=== PATIENT | male | born 1945 | race Caucasian/White ===

== ENCOUNTER → 2021-03-01 | Outpatient (CLI) | payer MEDICARE | END | disposition home or self-care (01) | LOC: LABPAT 15:50 | PROVIDERS: ATTEND Orthopaedic Surgery | DX: Z01.812 Encounter for preprocedural laboratory examination (principal) | CPT/HCPCS: 87070 ==

== ENCOUNTER → 2021-03-15 | Outpatient (CLI) | payer MEDICARE ==
[2021-03-15 19:36] LABS: Potassium 4.1 mmol/L (3.5-5.5)
== END | disposition home or self-care (01) ==
LOC: LABWHC1 14:06
PROVIDERS: ATTEND Family Medicine
DX: E87.1 Hypo-osmolality and hyponatremia (principal)
CPT/HCPCS: 36415; 80051

== ENCOUNTER → 2021-05-07 | Outpatient (CLI) | payer MEDICARE ==
[2021-05-07 11:19] LABS: Appearance,Urine Clear (Clear); Bilirubin,Urine Negative (Negative); Blood,Urine Negative (Negative); Color,Urine Light Yellow; Glucose,Urine (UA) Negative (Negative); Ketones,Urine Negative (Negative); Leukocyte Esterase,Urine Negative (Negative); Nitrite,Urine Negative (Negative); Protein,Urine Negative (Negative); Specific Gravity,Urine 1.017 (1.001-1.035); Urobilinogen,Urine <2.0 mg/dL (<2.0)
[2021-05-07 11:37] LABS: HCT 43.7 % (39.0-53.0); HGB 13.8 gm/dL (13.0-17.5); MCH 29.6 pg (25.0-35.0); MCHC 31.6 g/dL (31.0-37.0); MCV 93.5 fL (80.0-100.0); Mean Platelet Volume 7.6; Platelet Count 205 k/uL (150-450); RBC 4.67 m/uL (4.30-5.90); WBC 4.9 k/uL (3.8-10.6)
[2021-05-07 11:39] LABS: Albumin 3.9 g/dL (3.5-5.0); Calcium 9.4 mg/dL (8.4-10.2); Potassium 4.1 mmol/L (3.5-5.1); Total Bilirubin 0.7 mg/dL (0.2-1.3)
[2021-05-07 11:41] LABS: Partial Thromboplastin Time 22.4 sec (22.0-30.0); Prothrombin Time 10.3 sec (9.0-12.0)
== END | disposition home or self-care (01) ==
LOC: LABPAT 10:15
PROVIDERS: ATTEND Orthopaedic Surgery
DX: Z01.812 Encounter for preprocedural laboratory examination (principal); Z79.01 Long term (current) use of anticoagulants
CPT/HCPCS: 36415; 80053; 81003; 85027; 85610; 85730

== ENCOUNTER 2021-05-14 05:33 | Day surgery (SDC) | payer MEDICARE ==
[2021-05-07 15:45] VITALS: BMI 32.3
[~2021-05-14 05:33] MED LIST: ACETAMINOPHEN TAB 500 MG TAB PO PRN; DEXAMETHASONE SOD PHOSPHATE 4 MG/ML 1 ML VIAL IV ONE; GABAPENTIN 300 MG CAP PO PRN; LACTATED RINGERS 1,000 ML IV SCH; MELOXICAM 7.5 MG TAB PO PRN; ONDANSETRON 4 MG/2 ML VIAL IVP ONE; ROPIVACAINE/EPI/CLONIDINE/KET 50 ML SYRINGE MISCELLANE PRN; TRANEXAMIC ACID 1,000 MG in SODIUM CHLORIDE 0.9% 100 ML IVPB PRN
[2021-05-14 06:24] LABS: Glucose,Whole Blood 150 mg/dL (75-99)
[2021-05-14] MEDS ORDERED: LIDOCAINE 1% INJ 10MG/ML (20 ML MDV) ONE ×2 (06:36→07:05)
[2021-05-14] MEDS ORDERED: fentaNYL (PF) 50 MCG/ML 2 ML AMP IVP ONE (06:46)
[2021-05-14] MEDS ORDERED: MIDAZOLAM 2 MG/2 ML VIAL IVP ONE (06:46)
[2021-05-14] MEDS ORDERED: HYDROmorphone 0.5 MG/0.5 ML SYRINGE IVP PRN ×3 (07:00→07:07)
[2021-05-14] MEDS ORDERED: PROPOFOL 10 MG/ML 20 ML VIAL IV ONE (07:05)
[2021-05-14] MEDS ORDERED: SODIUM CHLORIDE 0.9% (PF) 10 ML VIAL ONE (07:05)
[2021-05-14] MEDS ORDERED: TRANEXAMIC ACID 1,000 MG/10 ML VIAL ONE (07:05)
[2021-05-14] MEDS ORDERED: ROCURONIUM 10 MG/ML (5 ML VIAL) IV ONE (07:05)
[2021-05-14] MEDS ORDERED: NEOSTIGMINE 1 MG/ML 10 ML VIAL ONE (07:05)
[2021-05-14] MEDS ORDERED: ROPIVACAINE 5 MG/ML 30 ML VIAL ONE (07:05)
[2021-05-14] MEDS ORDERED: SUCCINYLCHOLINE CHLORIDE 100 MG/5 ML SYR IV ONE (07:05)
[2021-05-14] MEDS ORDERED: fentaNYL (PF) 50 MCG/ML 2 ML AMP ONE (07:05)
[2021-05-14] MEDS ORDERED: SODIUM CHLORIDE 0.9% 100 ML BAG ONE (07:05)
[2021-05-14] MEDS ORDERED: GLYCOPYRROLATE 0.2 MG/ML 2 ML VIAL ONE (07:05)
[2021-05-14] MEDS ORDERED: NALOXONE 0.4 MG/ML 1 ML VIAL IV PRN (07:07)
[2021-05-14] MEDS ORDERED: ONDANSETRON 4 MG/2 ML VIAL IVP PRN (07:07)
[2021-05-14] MEDS ORDERED: HYDROmorphone 0.2 MG/1 ML SYRINGE IVP PRN (07:07)
[2021-05-14] MEDS ORDERED: HYDROcodone/APAP 7.5-325MG 1 EACH TAB PO PRN ×2 (07:09)
[2021-05-14] MEDS ORDERED: SODIUM CHLORIDE 0.9% 1,000 ML IV SCH (07:15)
--- NOTE | 2021-05-14 08:28 | P.OP ---
Date of Procedure: 05/14/21 Preoperative Diagnosis: Severe Osteoarthritis right knee Postoperative Diagnosis: Severe osteoarthritis right knee Procedure(s) Performed: Right total knee arthroplasty Implants: Sawyer [employer] Nephew Journey II CR Oxinium cruciate retaining femoral component size 6, right Sawyer [employer] Nephew Journey nonporous tibial baseplate size 6, right [employer] Journey II, XLPE Deep Dished articular insert, size 13 mm, Size 5-6, right [employer]hew Journey Sirena II resurfacing patellar component, oval, 35 mm All components were cemented using Palacos R bone cement The articulation is Oxinium on polyethylene Anesthesia: GUME Surgeon: Je Buchanan Ritual Circumciser #1: Gypsy Chopra Estimated Blood Loss (ml): 50 Pathology: other (Bone and cartilage) Condition: stable Disposition: PACU Indications for Procedure: After failure of conservative treatment we discussed the surgical and nonsurgical treatment options at length. Patient wishes to proceed with a total knee arthroplasty. Complications specific to this procedure were discussed at length, including but not limited to infection, bleeding, stiffness, and nerve injury. Covid-19 was also discussed at length with the patient, and they are aware of the current policies and procedures. The patient was given the option of delaying surgery, but they elect to proceed knowing these risks. Patient is aware of all these complications and informed consent was obtained Operative Findings: The operative findings are consistent with severe osteoarthritis of the right knee Description of Procedure: Patient was seen in the preoperative area and the consent was reviewed and the operative site was marked with a skin marker. The patient verified the procedure and the operative site. An adductor canal pain catheter and an iPACK block was placed by anesthesia in the preoperative area. The patient was then brought to the operating room and given preoperative antibiotics intravenously. A gram of transexamic acid was given intravenously. A general anesthetic was administered by the anesthesia department. A tourniquet was placed on the upper thigh and the lower extremity was prepped with chlorhexidine and draped in usual sterile fashion. A universal timeout was then performed which confirmed the patient's name, surgical site, ALLERGIES, and consent. The lower extremity was then exsanguinated and tourniquet was inflated to 250 mmHg. A standard anterior midline approach to the knee was performed. The skin and subcutaneous tissue were sharply dissected down to the patellar tendon. A medial parapatellar arthrotomy was then performed. The knee was then extended, the patellar was everted, and the knee was again flexed. The infra-patellar fat pad was removed in order to enhance exposure. The anterior horns of both menisci were excised, and a release was performed to the posterior medial aspect of the knee. On gross visual inspection, there was complete loss of articular cartilage in the medial and patellofemoral joint spaces. There was also significant cartilage damage in the lateral compartment. There were multiple periarticular osteophytes globally about the knee which were then removed with a Ronguer. The femoral canal was then opened with the 9.5 mm intramedullary drill. The 8 mm intramedullary sandra was then inserted into the femoral canal with the distal femoral cutting guide set for 5 of valgus. The distal femoral cutting block was then pinned in place. The intramedullary sandra was then removed, and the distal femur was then cut. The cutting block was then removed and the cut was checked for symmetry. The resected bone was then measured to confirm the appropriate distal femoral resection. Next, the sizing guide was then placed and set for 3 external rotation based off of the epicondylar axis and Whitesides line. Pins were then placed and the drill holes, and the femur was sized with the sizing stylus. The pins were then removed, and the sizing guide was then removed. The spikes of the femoral block was then placed into the predrilled holes, and malleted into place. Two 45 mm pins were then placed into the fixation holes on the cutting block. An madeleine wing was then used to ensure there would be no notching with the anterior cut. The anterior condyles were cut without notching. The anterior chord cut was then performed, followed by the posterior cut, posterior chamfer cut, and the anterior chamfer cut. The collateral ligaments were protected during the entire process. The cutting block was then removed. Any remaining bone and osteophytes were removed from the femur with a Rominger. The femoral canal was plugged with autologous bone. Attention was then directed to the tibia. The remaining ACL was removed with a Ronguer, and the tibia was then gently subluxed forward with a large bent knee retractor. Any remaining menisci were excised. The posterior lateral corner was cauterized in order to coagulate the lateral geniculate artery. The extra medullary tibial cutting guide was then placed, set for the appropriate rotation, slope, and depth of resection. The proximal tibia cutting guide was then pinned in place. Proximal tibia was then cut and sized. The femoral trial was placed. A narrow saw blade was then used to remove the anterior intracondylar femoral bone. The CR notch trial was then placed. The tibial trial was placed with the appropriate-sized insert. The knee was able to fully extend and flex to 130 and was stable throughout all range of motion. The knee was then extended and the patella was everted. Patella was then measured, and then using an osteotomy guide, the patella was cut at the appropriate level. The patella was then measured and drilled and the patella trial was then placed. The knee was then taken through range of motion with the patella trial and the patella tracked normally using the no thumbs technique.. The knee was then extended patella trial was then removed and the patella was everted. Knee was then flexed and lug holes were drilled through the femoral trial and the femoral trial was then removed. The tibial was then re-exposed, and the tibial broach guide was then pinned in place after it was set for the appropriate rotation to allow for the most coverage without overhang. The tibia was then reamed and broached. The cut surfaces of bone were then irrigated with pulsatile lavage. The knee was also irrigated with Irrisept solution. The components were then opened, the cement was mixed, and the components were then cemented in place. The cement was allowed to harden with the knee in full extension. After the cemented hardened. The tourniquet was released, and hemostasis was obtained. A second gram of transexamic acid was given intravenously. The knee was again irrigated. The knee was again taken through range of motion and found to be stable throughout all range of motion of 0-130, and the patella tracked normally. The fascia was then closed with 0 Vicryl followed by #2 strata fix suture. The subcutaneous tissue was closed with 3-0 Vicryl and 3-0 strata fix. Exofin glue was used for the skin and placed with the knee in flexion. After the glue had dried, and Optafoam silver impregnated dressing was applied. The patient was then transferred to recovery room in stable condition. The ophthalmic surgical assistant DAILY Kang was required due the complexity surgery and the need for a skilled executive chef assistant. She assisted in positioning, draping, retraction, and closure of the wound.
[2021-05-14] MEDS ORDERED: LACTATED RINGERS 1,000 ML IV ONE (08:37)
[2021-05-14] MEDS ORDERED: ROPIVACAINE 0.2%-NS ON-Q PUMP 2 MG/ML EACH MISCELLANE ONE (09:00)
[2021-05-14 09:06] VITALS: TEMP 97.2
[2021-05-14 09:08] VITALS: RESP 16
--- NOTE | 2021-05-14 09:53 | XR ---
Limited right knee HISTORY: Status post right knee arthroplasty 2 views the right knee Patient is status post right knee arthroplasty. There is anatomic alignment. Lucency is present withi n the soft tissues. IMPRESSION: Orthopedic follow-up
[2021-05-14] MEDS ORDERED: hydrALAZINE HCL 20 MG/ML 1 ML VIAL ONE (11:45)
[2021-05-14] MEDS ORDERED: hydrALAZINE HCL 20 MG/ML 1 ML VIAL IVP ONE (11:50)
[2021-05-14 11:52] VITALS: PULSE 98
[2021-05-14 12:14] VITALS: BP 152/60
--- NOTE | 2021-05-14 13:59 | P.ANPRN ---
Procedure Note - Anesthesia - Nerve Block Performed Right Adductor Canal Time Out Performed: Yes (06:45) Date of Procedure: 05/14/21 Procedure Start Time: :45 Procedure Stop Time: 06:56 Location of Patient: PreOp Indication: Acute Post-Operative Pain, Requested by Surgeon (Dr Je medina) Sedation Type: Sedate with meaningful contact maintained Preparation: Sterile Prep, Sterile Dressing Position: Supine Catheter: Indwelling Needle Types: Pajunk Needle Gauge: 21 Ultrasound used to visualize needle placement: Yes Ultrasound used to observe medication spread: Yes Injectate: 0.5% Ropivacaine (see comment for volume) (15cc) Blood Aspirated: No Pain Paresthesia on Injection Noted: No Resistance on Injection: Normal Image Stored and Saved: Yes Events: Uneventful and Well Tolerated
--- NOTE | 2021-05-14 14:01 | P.ANPRN ---
Procedure Note - Anesthesia - Nerve Block Performed Right iPack Time Out Performed: Yes Date of Procedure: 05/14/21 Procedure Start Time: 06:57 Procedure Stop Time: 07:02 Location of Patient: PreOp Indication: Acute Post-Operative Pain, Requested by Surgeon (Dr Je Buchanan) Sedation Type: Sedate with meaningful contact maintained Preparation: Sterile Prep Position: Supine Catheter: None Needle Types: Pajunk Needle Gauge: 21 Ultrasound used to visualize needle placement: Yes Ultrasound used to observe medication spread: Yes Injectate: 0.5% Ropivacaine (see comment for volume) (15cc + 5cc PF Normal saline) Blood Aspirated: No Pain Paresthesia on Injection Noted: No Resistance on Injection: Normal Image Stored and Saved: Yes Events: Uneventful and Well Tolerated
== END 2021-05-14 12:40 | disposition home health service (06) ==
LOC: OR 05:33
PROVIDERS: ATTEND Orthopaedic Surgery
DX: M17.11 Unilateral primary osteoarthritis, right knee (principal); Z20.822 Contact with and (suspected) exposure to COVID-19
CPT/HCPCS: 27447; 97110; 97161; 64999; 64448; 76942; 88300; 87635; 73560; C1713; C1776; J2250; J0360; J1100; J2710; J0690; J2405; J2001; J3010; J2795 ×2; J0330; J2704

== ENCOUNTER 2021-05-15 01:29 | Emergency (ER) | payer MEDICARE ==
--- NOTE | 2021-05-15 02:47 | XR ---
EXAMINATION TYPE: XR chest 2V DATE OF EXAM: 05/15/2021 COMPARISON: NONE HISTORY: Fever TECHNIQUE: 2 views FINDINGS: Heart and mediastinum are normal. Lungs are clear. Diaphragm is normal. Bony thorax is inta ct IMPRESSION: Normal chest.
[2021-05-15 03:29] LABS: Appearance,Urine Clear (Clear); Bilirubin,Urine Negative (Negative); Blood,Urine Negative (Negative); Color,Urine Yellow; Glucose,Urine (UA) 1+ (Negative); Ketones,Urine Negative (Negative); Leukocyte Esterase,Urine Negative (Negative); Nitrite,Urine Negative (Negative); Protein,Urine Negative (Negative); Specific Gravity,Urine 1.025 (1.001-1.035); Urobilinogen,Urine <2.0 mg/dL (<2.0)
--- NOTE | 2021-05-15 04:12 | ED ---
Fever HPI - General Chief Complaint: Fever Stated Complaint: High heart rate, fever Time Seen by Provider: 05/15/21 02:04 Source: patient Mode of arrival: wheelchair Limitations: no limitations - History of Present Illness Initial Comments: Patient 75-year-old man who woke with tachycardia and fever tonight. Took the his temperature at home and it was over 102. Complaint: fever -: minutes(s) Temperature Source: oral Context: recent procedure Associated Symptoms: nasal congestion Treatments Prior to Arrival: none - Related Data Home Medications Medication Instructions Recorded Confirmed Levothyroxine Sodium [Synthroid] 75 mcg PO QAM 04/11/17 05/14/21 Lisinopril-Hctz 10-12.5 mg 1 tab PO QAM 04/11/17 05/14/21 [Zestoretic 10-12.5] Simvastatin [Zocor] 20 mg PO Q2D 04/11/17 05/14/21 Terazosin [Hytrin] 5 mg PO Q2D 04/11/17 05/14/21 Ergocalciferol [Vitamin D2 (1250 1,250 mcg PO WEEKLY 03/16/21 05/14/21 Mcg = 29949 Iu)] Ipratropium [place] 0.06%Nasal 2 spray EA NOSTRIL BID PRN 03/16/21 05/14/21 [Atrovent Nasal 0.06%] Pioglitazone [Actos] 45 mg PO DAILY 03/16/21 05/14/21 Tadalafil [Cialis] 5 mg PO DAILY 03/16/21 05/14/21 Previous Rx's Medication Instructions Recorded Aspirin 325 mg PO BID #60 tab 05/14/21 HYDROcodone/APAP 7.5-325MG [Jones 1 - 2 tab PO Q6H PRN #32 tab 05/14/21 7.5-325] Ondansetron Odt [Zofran Odt] 1 tab PO Q8HR PRN #10 tab 05/14/21 Sennosides [Senokot] 2 tab PO DAILY PRN #60 tablet 05/14/21 Allergies Allergy/AdvReac Type Severity Reaction Status Date / Time No Known Allergies Allergy Verified 05/15/21 01:50 Review of Systems ROS Statement: Those systems with pertinent positive or pertinent negative responses have been documented in the HPI. ROS Other: All systems not noted in ROS Statement are negative. Constitutional: Reports: fever. Denies: chills, weakness ENT: Reports: congestion Respiratory: Denies: cough, dyspnea Cardiovascular: Reports: palpitations. Denies: chest pain, orthopnea, edema, syncope Gastrointestinal: Denies: abdominal pain, vomiting, diarrhea Genitourinary: Denies: dysuria, hematuria Musculoskeletal: Reports: as per HPI, arthralgia. Denies: back pain Skin: Denies: rash Neurological: Denies: headache, weakness Past Medical History Past Medical History: Diabetes Mellitus, Hyperlipidemia, Hypertension, Thyroid Disorder History of Any Multi-Drug Resistant Organisms: None Reported Past Surgical History: Joint Replacement Additional Past Surgical History / Comment(s): COLONOSCOPY, right knee Past Anesthesia/Blood Transfusion Reactions: No Reported Reaction Past Psychological History: No Psychological Hx Reported Smoking Status: Never smoker Past Alcohol Use History: Rare Past Drug Use History: None Reported - Past Family History Mother Family Medical History: No Reported History Brother(s) Family Medical History: Cancer General Exam Limitations: no limitations General appearance: alert, in no apparent distress Head exam: Present: atraumatic, normocephalic Eye exam: Present: normal appearance. Absent: scleral icterus, conjunctival injection ENT exam: Present: normal oropharynx Neck exam: Present: normal inspection Respiratory exam: Present: normal lung sounds bilaterally. Absent: respiratory distress, wheezes, rales, rhonchi, stridor Cardiovascular Exam: Present: regular rate, normal rhythm, normal heart sounds. Absent: systolic murmur, diastolic murmur, rubs, gallop GI/Abdominal exam: Present: soft. Absent: distended, tenderness, guarding, rebound, rigid, mass Extremities exam: Present: normal inspection, normal capillary refill, other (Surgical dressing is intact and clean). Absent: pedal edema, calf tenderness Back exam: Present: normal inspection. Absent: CVA tenderness (R), CVA tenderness (L) Neurological exam: Present: alert. Absent: motor sensory deficit Skin exam: Present: warm, dry, intact, normal color. Absent: rash Course Vital Signs 05/15/21 05/15/21 01:41 04:13 Temperature 98.9 F 99.2 F Pulse Rate 107 H 90 Respiratory 20 18 Rate Blood Pressure 133/64 126/78 O2 Sat by Pulse 96 99 Oximetry Medical Decision Making - Medical Decision Making Patient is 75-year-old man who had fever to over 102 at home tonight as well as some tachycardia. Patient denies other symptoms of infection except for a little bit of congestion and he states that he has chronic sinus type symptoms. - Lab Data Lab Results 05/15/21 05/15/21 05/15/21 Range/Units 02:30 02:30 03:20 Urine Color Yellow Urine Appearance Clear (Clear) Urine pH 5.0 (5.0-8.0) Ur Specific [place] 1.025 (1.001-1.035) Urine Protein Negative (Negative) Urine Glucose (UA) 1+ H (Negative) Urine Ketones Negative (Negative) Urine Blood Negative (Negative) Urine Nitrite Negative (Negative) Urine Bilirubin Negative (Negative) Urine Urobilinogen <2.0 (<2.0) mg/dL Ur Leukocyte Esterase Negative (Negative) Coronavirus (PCR) Not Detected (Not Detectd) Influenza Type A RNA Not Detected (Not Detectd) Influenza Type B (PCR) Not Detected (Not Detectd) Disposition Clinical Impression: Fever Disposition: HOME SELF-CARE Condition: Good Instructions (If sedation given, give patient instructions): Fever in Adults (ED) Is patient prescribed a controlled substance at d/c from ED?: No Referrals: Modesta Ruiz DO [Primary Care Provider] - 1-2 days
[2021-05-15 04:16] VITALS: BP 126/78; PULSE 90; RESP 18; TEMP 99.2
== END 2021-05-15 04:30 | disposition home or self-care (01) ==
LOC: EC 01:29
DX: R50.9 Fever, unspecified (principal); Z79.82 Long term (current) use of aspirin; E11.9 Type 2 diabetes mellitus without complications; E78.5 Hyperlipidemia, unspecified; I10 Essential (primary) hypertension; E07.9 Disorder of thyroid, unspecified; Z96.651 Presence of right artificial knee joint; Z20.822 Contact with and (suspected) exposure to COVID-19
CPT/HCPCS: 71046; 81003; 87502; 87635; 99285

== ENCOUNTER → 2023-03-27 | Outpatient (CLI) | payer MEDICARE ==
--- NOTE | 2023-03-27 08:17 | CT ---
EXAMINATION TYPE: CT sinus wo con DATE OF EXAM: 03/27/2023 COMPARISON: None HISTORY: chronic sinusitis, polyp in left nasal cavity f/u CT DLP: [address] of the paranasal sinuses was performed in the axial and coronal planes. Bone and soft tissue settings are submitted. The paranasal sinuses demonstrate normal aeration and development. The paranasal sinuses are free of mucosal thickening or air fluid level. The osteal meatal units are patent bilaterally. Nasal septal deviation from right to left. No bony destructive changes are seen within the field of view. IMPRESSION: Nasal septal deviation from right to left. Otherwise unremarkable study.
== END | disposition home or self-care (01) ==
LOC: RADCTMAIN 07:45
PROVIDERS: ATTEND Otolaryngology
DX: J32.0 Chronic maxillary sinusitis (principal); J34.2 Deviated nasal septum; J33.0 Polyp of nasal cavity
CPT/HCPCS: 70486

== ENCOUNTER → 2023-06-19 | Day surgery (SDC) | payer MEDICARE ==
[~2023-06-19] MED LIST changes: -ACETAMINOPHEN TAB 500 MG TAB PO PRN; -DEXAMETHASONE SOD PHOSPHATE 4 MG/ML 1 ML VIAL IV ONE; -GABAPENTIN 300 MG CAP PO PRN; +GLYCOPYRROLATE 0.2 MG/ML 2 ML VIAL ONE; +HYDROmorphone 0.5 MG/0.5 ML SYRINGE IVP PRN; -LACTATED RINGERS 1,000 ML IV SCH; +LIDOCAINE 1% (10MG/ML) FOR IV START INTRADERMA PRN; +LIDOCAINE 1% INJ 10MG/ML (20 ML MDV) ONE; -MELOXICAM 7.5 MG TAB PO PRN; +MIDAZOLAM 2 MG/2 ML VIAL IV PRN; +MIDAZOLAM 2 MG/2 ML VIAL ONE; +NEOSTIGMINE 1 MG/ML 10 ML VIAL ONE; +PROPOFOL 10 MG/ML 20 ML VIAL IV ONE; +ROCURONIUM 10 MG/ML (5 ML VIAL) IV ONE; -ROPIVACAINE/EPI/CLONIDINE/KET 50 ML SYRINGE MISCELLANE PRN; +SUCCINYLCHOLINE CHLORIDE 200 MG/10 ML VIAL IV ONE; -TRANEXAMIC ACID 1,000 MG in SODIUM CHLORIDE 0.9% 100 ML IVPB PRN; +ePHEDrine 50 MG/ML 1 ML VIAL ONE; +fentaNYL (PF) 50 MCG/ML 2 ML AMP ONE; +metroNIDAZOLE-NS PMX 500 MG in SALINE 1 100ML.BAG IVPB PRN
[2023-06-19] MEDS: OXYMETAZOLINE 0.05% NASL SPRAY 1 SPRAY BOTTLE EA NOSTRIL PRN (12:55)
[2023-06-19] MEDS: LACTATED RINGERS 1,000 ML IV SCH (13:17)
[2023-06-19] MEDS: FAMOTIDINE 20 MG/2 ML VIAL IV PRN (13:27)
[2023-06-19] MEDS: ONDANSETRON 4 MG/2 ML VIAL IVP PRN (13:32)
[2023-06-19] MEDS: DEXAMETHASONE SOD PHOSPHATE 4 MG/ML 1 ML VIAL IV ONE (13:32)
[2023-06-19 13:38] LABS: Glucose,Whole Blood 166 mg/dL (70-110)
[2023-06-19 14:52] LABS: Basophils % (A) 1 %; Eosinophils # (A) 0.1 k/uL (0-0.7); Eosinophils % (A) 1 %; HCT 46.4 % (39.0-53.0); HGB 15.2 gm/dL (13.0-17.5); Lymphocytes # (A) 1.5 k/uL (1.0-4.8); Lymphocytes % (A) 23 %; MCH 29.3 pg (25.0-35.0); MCHC 32.8 g/dL (31.0-37.0); MCV 89.3 fL (80.0-100.0); Mean Platelet Volume 8.7; Monocytes # (A) 0.5 k/uL (0-1.0); Monocytes % (A) 8 %; Neutrophils # (A) 4.3 k/uL (1.3-7.7); Neutrophils % (A) 65 %; Platelet Count 210 k/uL (150-450); RDW 13.5 % (11.5-15.5); WBC 6.5 k/uL (3.8-10.6)
[2023-06-19 15:01] LABS: ALT 29 U/L (4-49); AST 35 U/L (17-59); African American GFR (CKD) >90 (>60 ml/min/1.73 sqM); Albumin 4.4 g/dL (3.5-5.0); Alkaline Phosphatase 43 U/L (38-126); Anion Gap 6 mmol/L; Blood Urea Nitrogen 19 mg/dL (9-20); Calcium 9.6 mg/dL (8.4-10.2); Carbon Dioxide 27 mmol/L (22-30); Chloride 106 mmol/L (98-107); Glucose 170 mg/dL (74-99); Non-African American GFR(CKD) 88 (>60 ml/min/1.73 sqM); Sodium 139 mmol/L (137-145); Total Bilirubin 1.7 mg/dL (0.2-1.3); Total Protein 7.6 g/dL (6.3-8.2)
[2023-06-19] MEDS: EPINEPHrine 1 MG/ML (MDV) 30 ML VIAL TOPICAL ONE (15:02)
[2023-06-19] MEDS: LIDOCAINE 1%-EPI 1:100,000 50 ML VIAL SUBMUCOSAL ONE ×2 (15:03)
[2023-06-19 15:04] LABS: Potassium 4.4 mmol/L (3.5-5.1)
[2023-06-19] MEDS: BUPIVACAINE (PF) 0.25% 30 ML VIAL SQ ONE ×2 (15:04)
[2023-06-19] MEDS: BACITRACIN 50,000 UNIT VIAL TOPICAL ONE (15:44)
--- NOTE | 2023-06-19 16:31 | P.OP ---
Date of Procedure: 06/19/23 Preoperative Diagnosis: Deviated nasal septum Bilateral inferior turbinate hypertrophy Large left posterior nasal choanal polyp Postoperative Diagnosis: Same Procedure(s) Performed: Septoplasty submucosal resection of the inferior nasal turbinates with outfracturing and compression, bilateral Functional endoscopic sinus surgery with removal of large left posterior nasal choane polyp Anesthesia: GUME Surgeon: Agustin Fleming Estimated Blood Loss (ml): 5 Pathology: other (Sinonasal) Condition: stable Disposition: PACU Indications for Procedure: Patient has nasal obstruction which has been long-standing and has failed appropriate medical therapy including nasal steroids and irrigations. Examination reveals a large left nasal polyp along with a severe deviated septum and large obstructive inferior turbinates. All risks, benefits and alternative therapies were discussed in detail consent was obtained and all questions were answered for surgical correction Operative Findings: Large left nasal choanal polyp, deviated nasal septum severe left, large obstructive inferior turbinates Description of Procedure: Patient was taken to the operative room and placed in the supine position. A general inhalation anesthetic was administered to the patient by mask and subsequently intubated with a cuffed endotracheal tube by the department of anesthesia with a functioning IV line in place. The patient was monitored throughout the entire case by the department of anesthesia. The septum, lateral nasal wall inferior middle turbinates were injected with lidocaine 1% and bupivacaine with epinephrine. 10 minutes were allowed wait for full vasoconstrictive effects to take place. At this time a caudal incision was made over the caudal portion of the left septum down to the mucoperichondrium. A mucoperichondrial flap was developed to the extent of visualization on the left and a crossover incision was made with for the mucoperichondrial flap development to the extent of visualization on the contralateral side. With use of crosshatching incisions and removal of redundant strips of septal cartilage the septum was straightened his back in the vomerian groove and sutured fixated in position. Incision was closed with a rapid Vicryl in a quilting stitch was used to reapproximate the septal flaps. Mclean splints were placed at the end of the case for stabilization. We entered the inferior turbinates with a microdebrider with care to avoid any trauma to the turbinate had. A submucosal resection was performed bilaterally with the microdebrider utilizing a 2 mm microdebrider blade. Excellent results were obtained the inferior turbinates were then outfractured and compressed with the [employer] nasal elevator. Attention was then paid to the nose where a 0 Stover sandra scope was placed into the nose bilaterally we identified a very large left posterior nasal polyps which we removed and hemostasis was obtained with use of the xerogel packing. Mclean splints were placed. The patient tolerated this well and follow-up will be in the office next Friday.
[2023-06-19 16:35] VITALS: TEMP 97.8
[2023-06-19 16:41] LABS: Glucose,Whole Blood 180 mg/dL (70-110)
[2023-06-19 17:03] VITALS: RESP 20
[2023-06-19] MEDS: amLODIPine 10 MG TAB PO STA (17:15)
[2023-06-19] MEDS: hydrALAZINE HCL 20 MG/ML 1 ML VIAL IV ONE (17:44)
[2023-06-19] MEDS: METOPROLOL TARTRATE 5 MG/5 ML VIAL IVP ONE (18:33)
[2023-06-19 18:54] VITALS: BP 166/72; PULSE 102
== END | disposition home or self-care (01) ==
LOC: OR 12:32
PROVIDERS: ATTEND Otolaryngology
DX: J34.3 Hypertrophy of nasal turbinates (principal); J34.2 Deviated nasal septum; J33.0 Polyp of nasal cavity
CPT/HCPCS: 30520; 30140; 88305; 80053; 85025; 88300; J0171; J2250; J0330; J0360; J1100; J2710; J0690; J2405; J2001; J3010; J3490; J2704; J0665